=== PATIENT | female | born 1970 | race Caucasian/White ===

== ENCOUNTER 2025-02-02 08:56 | Outpatient (CLI) | payer OTHER ==
[~2025-02-02 08:56] MED LIST: CHOL2000 PO; LACT1CAP60 PO; PANT40TA39 PO
--- NOTE | 2025-02-02 10:25 | RADIOLOGY REPORT ---
CLINICAL INFORMATION: Left shoulder pain. TECHNIQUE: Multisequence multiplanar MRI images of the left shoulder were obtained without contrast. COMPARISON: None FINDINGS: Acromioclavicular joint: There is moderate acromioclavicular hypertrophy and marked edema. There is Type 2 acromion. Small amount of fluid in the subacromial / subdeltoid bursa. Rotator cuff tendons: Mild tendinosis of the distal supraspinatus and infraspinatus tendons without evidence of tear. Subscapularis and teres minor tendons are intact. Biceps tendon: No significant tendinosis. No evidence of attrition or tear. Accessory long head biceps tendon coursing adjacent to the main long head biceps tendon at the level of the bicipital groove, appears to arise from the superior capsule. Labrum: No labral tear identified. Bones: Prominent marrow edema in the distal clavicle and adjacent portions of the acromion. Muscles: Normal muscle bulk. No atrophy. Other: There is artifact, likely from prior postsurgical changes near the acromioclavicular joint and superior rotator cuff. Correlate with surgical history. IMPRESSION: 1. Moderate acromioclavicular hypertrophy with marked adjacent soft tissue edema and marrow edema in the distal clavicle and acromion. Findings may be seen with overuse injury, chronic repetitive trauma, or inflammatory arthropathy in the appropriate clinical setting. Correlate with clinical findings. 2. Rotator cuff tendinosis without evidence of tear. 3. Additional findings as described above.
== END 2025-02-02 23:59 | disposition home or self-care (01) ==
LOC: MRI02 08:56
PROVIDERS: ATTEND Nurse Practitioner Family
DX: M75.102 Unspecified rotator cuff tear or rupture of left shoulder, not specified as traumatic (principal); M25.512 Pain in left shoulder
CPT/HCPCS: 73221

== ENCOUNTER 2025-02-16 08:44 | Outpatient (CLI) | payer OTHER ==
--- NOTE | 2025-02-16 13:15 | RADIOLOGY REPORT ---
EXAM: MR MRI LOWER EXTREMITY LEFT INDICATION: UNSPECIFIED INJURY OF LEFT ANKLE SEQUELA TECHNIQUE: Multiplanar and multisequence MR imaging of the left ankle was performed in the absence of gadolinium contrast. COMPARISON: MR MRI UPPER EXTREMITY LEFT on DOS: 02/02/25 FINDINGS: [MEDIAL ANKLE]: Intact posterior tibialis, flexor hallucis longus, and flexor digitorum tendons. trace fluid along the posterior tibialis tendon sheath in the inframalleolar segment. Intact deltoid ligament. Intact spring ligament complex. [LOW LATERAL ANKLE]: Question low-grade sprain of the anterior talofibular ligament. Fluid along the peroneal tendon sheath extending from the supramalleolar to inframalleolar segment no discontinuity [HIGH LATERAL ANKLE]: Intact anterior and posterior inferior tibiofibular ligaments. [ANTERIOR ANKLE]: Intact anterior tibialis, extensor digitorum longus, and extensor hallucis longus tendons. [POSTERIOR ANKLE]: Small tibiotalar joint effusion. Extension fluid into the posterior subtalar joint. Small plantar calcaneal spur. Achilles insertional enthesophyte. Normal sinus Tarsi. Normal plantar fascia. Normal Achilles tendon. No retrocalcaneal bursitis. [MIDFOOT]: Normal. [BONES]: No acute fracture, osseous contusion, or aggressive osseous lesion. [MUSCLES]: Normal. [NEUROVASCULAR]: Normal tarsal tunnel [OTHER]: None IMPRESSION: 1. Tenosynovitis of the posterior tibialis and peroneal tendons. 2. Question low-grade sprain of the anterior talofibular ligament. 3. Small tibiotalar joint effusion.
== END 2025-02-16 23:59 | disposition home or self-care (01) ==
LOC: MRI 08:44
PROVIDERS: ATTEND Nurse Practitioner Family
DX: M25.472 Effusion, left ankle (principal); M77.32 Calcaneal spur, left foot; M65.872 Other synovitis and tenosynovitis, left ankle and foot; S99.912S Unspecified injury of left ankle, sequela; X58.XXXS Exposure to other specified factors, sequela
CPT/HCPCS: 73721